=== PATIENT | female | born 1990 | race Caucasian/White ===

== ENCOUNTER 2016-12-13 09:35 | Day surgery (SDC) | payer BC ==
[2016-12-12 12:14] VITALS: BMI 32.2
[~2016-12-13] VITALS: Ht 157.5 cm; Wt 78.0 kg
[2016-12-13] VITALS (16 sets, daily range): BP systolic 95–125; BP diastolic 52–71; PULSE 62–99; RESP 10–22; Ht 157.5 cm; Wt 78.0 kg
[2016-12-13] MEDS ORDERED: CEFAZOLIN 2 GM/50 ML (PMX) 50 ML IVPB ONE (10:00)
[2016-12-13] MEDS ORDERED: SOD CHLORIDE 0.9% 1,000 ML IV SCH (10:00)
[2016-12-13] MEDS ORDERED: PRENAT PO (11:06)
[2016-12-13] MEDS ORDERED: FENTAnyl 50 MCG/ML VIAL ONE ×2 (12:14→12:42)
[2016-12-13] MEDS ORDERED: PROPOFOL 20 ML ONE (12:14)
[2016-12-13] MEDS ORDERED: LIDOCAINE 2% (SDV) 5 ML INJ ONE (12:14)
[2016-12-13] MEDS ORDERED: SUCCINYLCHOLINE CHLORIDE 100 MG/5 ML SYG IV ONE (12:14)
[2016-12-13] MEDS ORDERED: MIDAZOLAM 1 MG/ML 2 ML INJ ONE (12:14)
[2016-12-13] MEDS ORDERED: ONDANSETRON 4 MG INJ ONE (12:23)
[2016-12-13] MEDS ORDERED: DEXAMETHASONE 4 MG/ML 1 ML INJ ONE (12:23)
[2016-12-13] MEDS ORDERED: METOCLOPRAMIDE 10 MG INJ ONE (12:23)
[2016-12-13] MEDS ORDERED: CEFAZOLIN 1 GM INJ ONE (12:23)
[2016-12-13] MEDS ORDERED: BUPIVACAINE 0.25% (MPF) 30 ML INJ ONE (12:25)
[2016-12-13] MEDS ORDERED: ROCURONIUM 50 MG INJ ONE (12:25)
[2016-12-13] MEDS ORDERED: BUPIVACAINE 0.25% (MPF) 30 ML INJ INJ ONE (12:47)
[2016-12-13] MEDS ORDERED: GLYCOPYRROLATE 0.4 MG INJ ONE ×2 (12:50→12:52)
[2016-12-13] MEDS ORDERED: NEOSTIGMINE 3 MG/3 ML SYRINGE ONE ×2 (12:50→12:52)
[2016-12-13] MEDS ORDERED: PROCHLORPERAZINE 10 MG INJ IV PRN (13:00)
[2016-12-13] MEDS ORDERED: HYDROmorphONE (0.2 MG/ML) 10ML SYG IV PRN (13:00)
[2016-12-13] MEDS ORDERED: KETOROLAC 30 MG INJ IV ONE (13:00)
[2016-12-13] MEDS ORDERED: HYDROCODONE/APAP (5/325) TAB PO ONE (13:00)
[2016-12-13] MEDS ORDERED: ONDANSETRON 4 MG INJ IV PRN (13:00)
[2016-12-13] MEDS ORDERED: OXYCODONE/ACETAMINOPHEN (5/325) TAB PO PRN ×2 (13:00)
[2016-12-13] MEDS ORDERED: MEPERIDINE 25 MG INJ IV PRN (13:00)
[2016-12-13] MEDS ORDERED: DIPHENHYDRAMINE 50 MG INJ IV PRN (13:00)
--- NOTE | 2016-12-13 13:11 | OPR ---
DATE OF OPERATION: 12/13/2016 INDICATION: This is a 26-year-old female with symptomatic gallstones. She requests surgical excisi on of her gallbladder. Risks, alternatives, benefits, and personnel were discussed with the patient . The patient expressed understanding and consents to the operation. PREOPERATIVE DIAGNOSIS: Symptomatic gallstones. POSTOPERATIVE DIAGNOSIS: Symptomatic gallstones. OPERATION: Laparoscopic cholecystectomy. SURGEON: Issa Huynh MD SPECIMENS: Gallbladder. COMPLICATIONS: None. ANESTHESIA: General. PROCEDURE: The patient was taken to the OR and prepped and draped in the usual sterile fashion. Uribe rgical timeout was performed. IV antibiotics were given. Infraumbilical incision was made transver sely with a 15 blade. Dissection cautery was carried down to the fascia, which was divided with cur yanni Waters scissors. 0 Vicryl U-stitch was placed into the fascia. Balloon Kristian trocar was introdu jayy. Pneumoperitoneum was established. Mid epigastric 12 mm optical trocar in right upper quadrant and right upper flank, 5 mm optical trocars are placed under direct visualization. Upon initial in spection, there were some adhesions to the gallbladder, which were taken down bluntly. The cystic d uct was identified. The critical view was established. The cystic duct and cystic artery were divi ded using a 35 mm [place] vascular stapler. The gallbladder was taken off the gallbladder bed. Add itional clips were placed for reinforcement. The gallbladder was retrieved using an EndoCatch bag. There was good hemostasis. Ports were removed under direct visualization. 0 Vicryl U-stitch was t ied down. Skin was closed with skin von. Local anesthesia was injected. Dry dressings were ap plied. Dictated By: ISSA HUYNH MD SB/NTS Conf#: [id number] DID#: [id number]
[2016-12-13] MEDS: FENTAnyl 50 MCG/ML VIAL IV PRN ×3 (13:24→13:58)
== END 2016-12-13 15:30 | disposition home or self-care (01) ==
LOC: SDS 09:35
PROVIDERS: ATTEND Surgery
DX: K80.10 Calculus of gallbladder with chronic cholecystitis without obstruction (principal)
CPT/HCPCS: 47562; 88304; J0330; J0690; J1100; J1885; J2250; J2405; J2710; J2765; J3010; Z7512; Z7610